=== PATIENT | male | born 1975 | race Caucasian/White ===

== ENCOUNTER 2023-05-31 11:53 | Outpatient (CLI) | payer OTHER, SELFPAY | END 2023-05-31 11:54 | disposition home or self-care (01) | PROVIDERS: PCP Family Medicine; Visit Provider Family Medicine | DX: Z00.00 Encounter for general adult medical examination without abnormal findings (principal); R03.0 Elevated blood-pressure reading, without diagnosis of hypertension; R60.0 Localized edema; Z11.59 Encounter for screening for other viral diseases; Z12.5 Encounter for screening for malignant neoplasm of prostate; Z13.6 Encounter for screening for cardiovascular disorders | CPT/HCPCS: 80053; 80061; 84153; 86803 ==

== ENCOUNTER 2023-07-17 07:15 | Outpatient (CLI) | payer OTHER, SELFPAY ==
--- NOTE | 2023-07-17 07:59 | W.ANESCHARGE ---
Anesthesia Charges Start Date/Time Anesthesia Start Date: 07/17/23 Anesthesia Start Time: 08:00 Stop Date/Time Anesthesia Stop Date: 07/17/23 Anesthesia Stop Time: 08:55
--- NOTE | 2023-07-17 08:56 | W.ANESCHARGE ---
Anesthesia Charges Start Date/Time Anesthesia Start Date: 07/17/23 Anesthesia Start Time: 08:00 Stop Date/Time Anesthesia Stop Date: 07/17/23 Anesthesia Stop Time: 08:55
== END 2023-07-17 07:16 | disposition home or self-care (01) ==
LOC: OP CLINIC 07:16
PROVIDERS: PCP Family Medicine; Visit Provider Surgery
DX: R19.5 Other fecal abnormalities (principal); K62.1 Rectal polyp
CPT/HCPCS: 00811; 45381; 45385; 88305; J2704

== ENCOUNTER 2024-04-01 06:33 | Outpatient (CLI) | payer OTHER, SELFPAY ==
--- NOTE | 2024-04-01 07:58 | W.ANESCHARGE ---
Anesthesia Charges Start Date/Time Anesthesia Start Date: 04/01/24 Anesthesia Start Time: 07:28 Stop Date/Time Anesthesia Stop Date: 04/01/24 Anesthesia Stop Time: 07:55
--- NOTE | 2024-04-01 11:30 | W.ANESCHARGE ---
Anesthesia Charges Start Date/Time Anesthesia Start Date: 04/01/24 Anesthesia Start Time: 07:28 Stop Date/Time Anesthesia Stop Date: 04/01/24 Anesthesia Stop Time: 07:55
== END 2024-04-01 06:34 | disposition home or self-care (01) ==
LOC: OP CLINIC 06:33
PROVIDERS: PCP Family Medicine; Visit Provider Surgery
DX: Z86.010 Personal history of colon polyps (principal); Z98.890 Other specified postprocedural states; Z09 Encounter for follow-up examination after completed treatment for conditions other than malignant neoplasm
CPT/HCPCS: 00811; 00812; 45378; J2704

== ENCOUNTER 2024-06-10 09:55 | Outpatient (CLI) | payer OTHER, SELFPAY | END 2024-06-10 09:56 | disposition home or self-care (01) | PROVIDERS: PCP Family Medicine; Visit Provider Family Medicine | DX: Z00.00 Encounter for general adult medical examination without abnormal findings (principal); R79.89 Other specified abnormal findings of blood chemistry; I10 Essential (primary) hypertension; R39.12 Poor urinary stream; Z13.6 Encounter for screening for cardiovascular disorders; Z13.1 Encounter for screening for diabetes mellitus | CPT/HCPCS: 80053; 80061; 82043; 82570; G0103 ==

== ENCOUNTER 2024-06-19 07:08 | Outpatient (CLI) | payer OTHER, SELFPAY ==
--- NOTE | 2024-06-19 07:15 | CRLHL7_ITS ---
For Patients: As a result of the Century Cures Act, medical imaging exams and procedure reports are released immediately into your electronic medical record. You may view this report before your referring provider. If you have questions, please contact your health care provider. INDICATION: abnormal labs COMPARISON: none TECHNIQUE: Real time nathan scale imaging and color Doppler analysis was performed of the right upper quadrant. FINDINGS: The patient`s liver is of normal size and has increased echogenicity. Focal areas of decreased echogenicity adjacent to the gallbladder. Simple cyst is present within the left hepatic lobe measuring 6 x 5 x 7 millimeters. The liver measures 16.1 cm. There is a normal appearance of the hepatic IVC and proximal abdominal aorta. There is no evidence of ascites. The gallbladder is of normal size and there is no evidence of intraluminal stones or sludge. The gallbladder wall measures 2.3 mm in thickness. The common bile duct is of normal size and measures 3.6 mm in diameter at the level of the kerline hepatis. The visualized pancreas appears normal. There is no evidence of a stone or hydronephrosis within the right kidney. The right kidney measures 12.6 cm in length. IMPRESSION: Moderately severe diffuse hepatic steatosis with areas of focal fatty sparing. Incidental simple intrahepatic cysts. Remainder normal. Dictated by Walt Ascencio MD @ 06/20/2024 12:06:56 PM (Electronically Signed)
== END 2024-06-19 07:09 | disposition home or self-care (01) ==
LOC: US 07:08
PROVIDERS: PCP Family Medicine; Visit Provider Family Medicine
DX: R79.89 Other specified abnormal findings of blood chemistry (principal); K76.0 Fatty (change of) liver, not elsewhere classified; K76.89 Other specified diseases of liver
CPT/HCPCS: 76705

== ENCOUNTER 2024-10-06 08:00 | Outpatient (CLI) | payer OTHER, SELFPAY | END 2024-10-06 08:01 | disposition home or self-care (01) | LOC: NFLDREF 10-08 19:40 | PROVIDERS: PCP Family Medicine; Referring Provider Family Medicine; Visit Provider Family Medicine | DX: I10 Essential (primary) hypertension (principal); R79.89 Other specified abnormal findings of blood chemistry | CPT/HCPCS: 80053 ==

== ENCOUNTER 2025-06-08 16:34 | Outpatient (CLI) | payer OTHER, SELFPAY | END 2025-06-08 16:35 | disposition home or self-care (01) | PROVIDERS: PCP Family Medicine; Visit Provider Family Medicine | DX: I10 Essential (primary) hypertension (principal); R79.89 Other specified abnormal findings of blood chemistry; R39.12 Poor urinary stream; Z12.5 Encounter for screening for malignant neoplasm of prostate | CPT/HCPCS: 80053; 80061; 82043; 82570; G0103 ==